=== PATIENT | female | born 1990 | race Caucasian/White ===

== ENCOUNTER 2025-09-22 17:34 | Emergency (ER) | payer OTHER, SELFPAY ==
--- NOTE | 2025-09-22 18:03 | ED_ITS ---
HPI - General Adult General Chief complaint: Abdominal Pain Stated complaint: ongoing stomach pain/headaches Time Seen by Provider: 09/22/25 21:24 Source: patient Mode of arrival: ambulatory Limitations: no limitations History of Present Illness ED Provider: Dr. María Cruz HPI narrative: 35-year-old biological male transition to female on hormones presenting with abdominal pain and request for medication refill. Patient states that she has been dealing with epigastric abdominal pain associated with food intake as well as some nausea, vomiting and occasional diarrhea ongoing for the last 4-5 days. Admits that she has no primary care physician to fill prescriptions and has been struggling after relocating to [place] from [place]. Ran out of her hormone replacement therapy as well as aripiprazole and sertraline. Denies associated chest pain or difficulty breathing, fevers, urinary complaints, hematochezia or melena. Has been feeling relatively well otherwise. Related Data Previous Rx's ?Medication ?Instructions ?Recorded aripiprazole 10 mg tablet 10 mg PO DAILY #60 tabs 08/28 06/20 ondansetron 4 mg disintegrating 4 mg PO Q8H PRN nausea and 09/22/25 tablet vomiting #10 tabs progesterone micronized 100 mg 100 mg PO BEDTIME 60 da ys #60 caps 09/22/25 capsule sertraline 50 mg tablet 50 mg PO DAILY #60 tabs 08/28 06/20 Allergies Allergy/AdvReac Type Severity Reaction Status Date / Time No Known Allergies Allergy Verified 09/22/25 18:05 Review of Systems 2 Review of Systems: as per HPI, full review of systems performed and negative but for the above mentioned pertinent positives and negatives. [facility] Social History Social History Smoked in Last 30 Days: No Substance Use Type: Marijuana Advance Directives: No Advance Directives Information Provided: No Patient : No Physical Exam ED Exam Exam: GENERAL: Chronically ill-Appearing, appears uncomfortable. SKIN: Normal skin color for ethnicity, warm, dry, no rashes noted. HEENT:? Normocephalic, atraumatic, no stridor, dry mucous membranes, dentition intact, EOMI. NECK: Soft, supple, full ROM, midline structures nontender, no step-offs, no deformities, no lymphadenopathy. CHEST: Heart regular rhythm, no murmurs, symmetric chest rise and fall. PULMONARY: Clear to auscultation bilaterally, diminished at the bases, no labored breathing, no wheezes/rhales/rhonchi. ABDOMINAL: Soft, protuberant, nontender, quiet bowel sounds in all quadrants. : Deferred. MUSCULOSKELETAL: Normal tone, full range of motion, no deformities, no peripheral edema. NEURO: Alert and oriented x3, CN II through XII intact, equal strength and sensation bilateral upper and lower extremities, no focal neurologic deficits.? PSYCHIATRIC: Flat affect, fluid speech, good eye contact and appropriate demeanor. Vital Signs: Vital Signs - 24 hr 09/22/25 18:04 09/22/25 20:03 Temperature 97.6 F 98.4 F Pulse Rate 76 75 Respiratory Rate 16 14 Blood Pressure 160/74 H 144/79 H Pulse Oximetry 96 97 Oxygen Delivery Method Room Air Room Air BMI result Body Mass Index 50.1 Course Course Course Narrative: Rapid medical examination performed in triage by Jane Whitley PA-C. Patient is a 35 year old assigned male at , now female, presenting to the emergency department with abdominal pain. Patient states that she has had abdominal pain for the last 4-5 days and recently moved back here from [place] so has not been able to get any of their medications filled. Detailed physical exam and review of systems are deferred to the primary operator. Labs ordered. Patient placed back in the waiting room pending room availability and results. Medications Administered Discontinued Medications Generic Name Dose Route Start Last Admin Trade Name Freq PRN Reason Stop Dose Admin Al Hydroxide/Mg Hydroxide 30 ml 09/22/25 21:54 09/22/25 21:59 Magnesium Hydrox/Alum Hydrox 30 Ml Oral.Susp PO 09/22/25 21:55 30 ml ONCE ONE Administration Famotidine 20 mg 09/22/25 21:54 09/22/25 21:59 Famotidine 20 Mg Tablet PO 09/22/25 21:55 20 mg ONCE ONE Administration Lidocaine HCl 15 ml 09/22/25 21:54 09/22/25 21:59 Lidocaine Hcl Viscous 2 % 15 Ml Solution MUCOUS MEM 09/22/25 21:55 15 ml ONCE ONE Administration Medical Decision Making Medical Decision Making [facility] Narrative: This patient presents today with a chief complaint of abdominal pain. Differential diagnosis for this patient is broad.? It includes appendicitis, cholecystitis, bowel obstruction, diverticulitis, peptic ulcer disease, pyelonephritis, vascular pathology, among many others.? A broad-based workup based on history and physical examination was obtained. ? Patient was given GI cocktail for pain control. ? Workup is reassuring. Patient provided with prescriptions for aripiprazole, sertraline and Provera. Given primary care doctor referrals. Discharged in stable condition. Differential Diagnosis Differential Diagnoses: The differential diagnosis associated with the presentation includes (as above) Admission/Observation Consideration of admission/observation: Escalation of care including admission/observation considered Lab Data MDM Lab Attestation statement: I reviewed the patient's lab results. 09/22/25 18:20 09/22/25 18:20 Labs: Lab Results 09/22/25 09/22/25 Range/Units 18:20 20:08 WBC 10.4 (4.8-10.8) X10*3/uL RBC 5.05 (4.20-5.50) X10*6/uL Hgb 13.5 (12.0-16.0) g/dl Hct 42.1 (37.0-47.0) % MCV 83.4 (80.0-98.0) fL MCH 26.7 L (27.0-33.0) pg MCHC 32.1 (31.0-35.0) g/dl RDW 15.9 (11.0-16.0) % Plt Count 403 H (160-400) X10*3/uL MPV 9.3 L (9.4-12.3) fL Immature Gran % (Auto) 0.9 H (0.0-0.4) % Neut % (Auto) 51.5 (45-73) % Lymph % (Auto) 36.0 (20-40) % Duval % (Auto) 8.4 (2-11) % Eos % (Auto) 2.7 (0-4) % Baso % (Auto) 0.5 (0-2) % Lymph # (Auto) 3.7 (1.2-4.9) X10*3/uL Duval # (Auto) 0.9 (0.1-1.2) X10*3/uL Eos # (Auto) 0.3 (0.0-0.4) X10*3/uL Baso # (Auto) 0.1 (0.0-0.2) X10*3/uL Abs Immat Gran (auto) 0.09 H (0.00-0.03) X10*3/uL Absolute Neuts (auto) 5.4 (2.0-8.3) x10*3/uL Absolute Nucleated RBC 0.000 (0.0-0.012) X10*3/uL Nucleated RBC % (auto) 0.0 (0.0-0.2) /100WBC Sodium 141 (135-145) mmol/L Potassium 4.3 (3.3-5.1) mmol/L Chloride 106 (96-108) mmol/L Carbon Dioxide 27 (22-29) mmol/L Anion Gap 12 (12-20) BUN 12 (9-16) mg/dL Creatinine 0.65 (0.5-1.4) mg/dL Estim Creat Clear Calc 215.6 Estimated GFR > 60 Random Glucose 93 (60-115) mg/dL Calcium 9.2 (8.4-10.2) mg/dL Magnesium 2.1 (1.6-2.6) mg/dL Total Bilirubin 0.3 (0.0-1.0) mg/dL AST 27 (5-31) U/L ALT 43 H (0-31) U/L Alkaline Phosphatase 71 (39-117) U/L Total Protein 7.2 (6.5-8.0) g/dL Albumin 4.4 (3.5-5.0) g/dL Urine Color Yellow Urine Appearance Clear Urine pH 5.5 (5.0-9.0) Ur Specific [place] >= 1.030 H (1.005-1.025) Urine Protein Trace (Neg-Trace) mg/dL Urine Glucose (UA) Negative (Negative) mg/dL Urine Ketones Negative (Negative) mg/dL Urine Blood Negative (Negative) Urine Nitrite Negative (Negative) Ur Leukocyte Esterase Negative (Negative) COVID-19 (RUDDY) Negative (Negative) COVID-19 Clin Com See Note Influenza Type A (SARWAT) Negative (Negative) Influenza Type B (SARWAT) Negative (Negative) Influenza A & B Note See Note Prescription Management I considered prescription management with: Other (home medications) Chronic Conditions Patient?s care impacted by: Other (bipolar depression) Social Determinants Patient?s care significantly limited by Social Determinants of Health including: Other Social Determinant of Health Discharge Plan Discharge Clinical Impression: Encounter for medication refill, Gastritis, Anxiety as acute reaction to gross stress Patient Disposition: Home, Self-Care Instructions: Gastritis (ED), Medicine Refill (ED) Additional Instructions: DIAGNOSIS & TREATMENT: You were seen in the Emergency Department for your abdominal pain. We performed lab work which did not reveal any acute abnormalities that would explain your symptoms. FURTHER CARE: We have not found any emergent physical exam or lab abnormalities that would require admission to the hospital today. Many people who come to the ER with abdominal pain do not leave with a specific diagnosis at the end of their visit. In the Emergency Department we try to make sure that there is no emergent problem that needs surgery or antibiotics right now. This does not mean that your evaluation is complete--please be sure to follow up with your regular doctor as additional testing as an outpatient may be indicated Please be certain to drink plenty of fluids over the next several. You should advance your diet as tolerated. You may wish to start with the BRAT diet (bananas, rice, applesauce, toast). WHEN YOU SHOULD BE SEEN NEXT: Please follow-up with your primary care provider within the next 2-3 days for reevaluation of your symptoms. WHEN TO RETURN TO THE ED: Monitor your symptoms closely and return to the emergency department immediately for any new/worsening symptoms, worsening abdominal pain, pain which changes location (particularly if it moved to the right lower quadrant), nausea, vomiting, blood in your stool, black/tarry stools, chest pain, shortness of breath, fevers, chills, night sweats, you are unable to arrange follow-up care, or any other concerning symptoms. If you do not have a primary care physician, please call the [facility] at [phone] to establish a new primary care physician. While waiting to establish a new primary care physician, you can call our [facility] at [phone] for non-emergency needs. Prescriptions: New sertraline 50 mg tablet 50 mg PO DAILY Qty: 60 0RF progesterone micronized 100 mg capsule 100 mg PO BEDTIME 60 Days Qty: 60 0RF aripiprazole 10 mg tablet 10 mg PO DAILY Qty: 60 0RF ondansetron 4 mg tablet,disintegrating 4 mg PO Q8H PRN (Reason: nausea and vomiting) Qty: 10 0RF Interventions: ED Discharge Assessment Last Done: 09/22/25 22:12 Discharge Date/Time: 09/22/25 22:26 Print Language: Turkmen
[2025-09-22 18:04] VITALS: BP 160/74; PULSE 76; RESP 16; TEMP 36.4; O2SAT 96; BMI 50.1
[2025-09-22 18:42] LABS: MANUAL DIFF FLAG NO
[2025-09-22 18:50] LABS: Hematocrit 42.1 % (37.0-47.0); Hemoglobin 13.5 g/dl (12.0-16.0); Imm Gran Abs Auto 0.09 X10*3/uL (0.00-0.03); Imm Gran Pct Auto 0.9 % (0.0-0.4); Lymphocytes Absolute Auto 3.7 X10*3/uL (1.2-4.9); Mean Corpuscular HGB Conc 32.1 g/dl (31.0-35.0); Mean Corpuscular Hemoglobin 26.7 pg (27.0-33.0); Mean Corpuscular Volume 83.4 fL (80.0-98.0); NRBC Abs Auto 0.000 X10*3/uL (0.0-0.012); NRBC Pct Auto 0.0 /100WBC (0.0-0.2); Platelet Count 403 X10*3/uL (160-400); Red Blood Count 5.05 X10*6/uL (4.20-5.50); White Blood Count 10.4 X10*3/uL (4.8-10.8)
[2025-09-22 18:57] LABS: Alanine Aminotransferase 43 U/L (0-31); Albumin Level 4.4 g/dL (3.5-5.0); Alkaline Phosphatase 71 U/L (39-117); Anion Gap 12 (12-20); Aspartate Amino Transferase 27 U/L (5-31); Blood Urea Nitrogen 12 mg/dL (9-16); Calcium 9.2 mg/dL (8.4-10.2); Carbon Dioxide 27 mmol/L (22-29); Chloride 106 mmol/L (96-108); Creatinine Clr Calc Pharmacy 215.6; Estimated Glomerular Filt Rate > 60; Magnesium 2.1 mg/dL (1.6-2.6); Potassium 4.3 mmol/L (3.3-5.1); Sodium 141 mmol/L (135-145); Total Protein 7.2 g/dL (6.5-8.0)
[2025-09-22 18:58] LABS: COVID-19 Test Negative (Negative); IDNOW Serial# 55D5AD1C
[2025-09-22 18:59] LABS: IDNOW Serial# 58CA691E; Influenza B2 Negative (Negative)
[2025-09-22 20:03] VITALS: BP 144/79; PULSE 75; RESP 14; TEMP 36.9; O2SAT 97
[2025-09-22 20:26] LABS: Appearance Urine Clear; Glucose Urine UA Negative (Negative); PH 5.5 (5.0-9.0); Specific Gravity - Urine >= 1.030 (1.005-1.025)
[2025-09-22] MEDS: Lidocaine HCl Viscous 2 % 15 ML SOLUTION MUCOUS MEM (21:59)
[2025-09-22] MEDS: Magnesium Hydrox/Alum Hydrox 30 ML ORAL.SUSP PO (21:59)
[2025-09-22 22:12] VITALS: BP 144/79; PULSE 75; RESP 14; TEMP 36.9; O2SAT 97
== END 2025-09-22 22:26 | disposition home or self-care (01) ==
PROVIDERS: Physician Assistant Medical; Emergency Provider Emergency Medicine
DX: K29.70 Gastritis, unspecified, without bleeding (principal); R10.22 Pelvic and perineal pain left side; F41.9 Anxiety disorder, unspecified; R51.9 Headache, unspecified; R11.2 Nausea with vomiting, unspecified; R19.7 Diarrhea, unspecified; Z76.0 Encounter for issue of repeat prescription; Z11.52 Encounter for screening for COVID-19; Z79.899 Other long term (current) drug therapy
CPT/HCPCS: 80053; 81003; 83735; 85025; 87502; 87635; 99283; 99284